=== PATIENT | male | born 1960 | race Caucasian/White ===

== ENCOUNTER → 2019-04-09 | Emergency (ER) | payer MEDICAID, OTHER ==
[~2019-04-09] VITALS: Ht 172.7 cm; Wt 82.0 kg
[~2019-04-09] MED LIST: ALBUTEROL (0.083%) 2.5MG/3ML NEB HHN STA; IPRATROPIUM BROMIDE (0.02%) 0.5MG/2.5ML NEB HHN STA; LOSARTAN POTASSIUM 100 MG TABLET PO ONE; METHYLPREDNISOLONE SOD SUCC 125 MG/2 ML VIAL IV STA
[2019-04-09 02:29] LABS: BASOPHILS % 0.9 % (0.0-2.0); EOSINOPHILS % 4.5 % (0.0-5.0); HEMATOCRIT. 44.6 % (42.0-52.0); HEMOGLOBIN. 15.5 g/dL (14.0-18.0); LYMPHOCYTES % 21.1 % (20.0-50.0); MEAN CORPUSCULAR HEMOGLOBIN 31.3 pg (28.0-32.0); MEAN PLATELET VOLUME 9.2 fl (7.4-10.4); NEUTROPHILS % 66.5 % (40.0-76.0); PLATELET 255 x1000/uL (130-400); RED BLOOD CELL COUNT 4.96 mill/uL (4.7-6.1); RED CELL DISTRIBUTION WIDTH 14.3 % (11.6-14.6)
[2019-04-09 02:39] LABS: CHLORIDE 109 mEq/L (98-107)
[2019-04-09 05:00] VITALS: BP 188/73
== END | disposition left against medical advice (07) ==
LOC: ER 01:10
DX: J45.901 Unspecified asthma with (acute) exacerbation (principal); I21.4 Non-ST elevation (NSTEMI) myocardial infarction; I10 Essential (primary) hypertension; R73.9 Hyperglycemia, unspecified
CPT/HCPCS: 36415; 71045; 80053; 83880; 84484; 85025; 87804; 93005; 94640; 96374; 99285; J2930; J7610; Z7610